=== PATIENT | male | born 1950 | race Caucasian/White ===

== ENCOUNTER 2021-06-03 05:35 | Day surgery (SDC) | payer OTHER ==
[2021-05-27 16:09] LABS: BASOPHILS # (AUTO) 0.1 X10'3 (0-0.2); BASOPHILS % (AUTO) 0.8 % (0-1); EOSINOPHILS # (AUTO) 0.1 X10'3 (0-0.9); EOSINOPHILS % (AUTO) 2.2 % (0-6); LYMPHOCYTES # (AUTO) 1.5 X10'3 (1.1-4.8); LYMPHOCYTES % (AUTO) 24.4 % (21-51); MEAN CORPUSCULAR HEMOGLOBIN 29.5 PG (27.0-31.0); MEAN CORPUSCULAR HGB CONC 32.5 g/dL (33.0-36.5); MEAN CORPUSCULAR VOLUME 90.7 FL (78-98); MEAN PLATELET VOLUME 8.7 FL (7.4-10.4); MONOCYTES # (AUTO) 0.6 X10'3 (0-0.9); MONOCYTES % (AUTO) 9.2 % (2-12); NEUTROPHILS # (AUTO) 3.9 X10'3 (1.8-7.7); NEUTROPHILS % (AUTO) 63.4 % (42-75); PRE OP HEMATOCRIT 44.2 % (42.0-52.0); PRE OP HEMOGLOBIN 14.3 g/dL (14.0-17.9); PRE OP PLATELET COUNT 178 X10'3 (140-440); RED BLOOD COUNT 4.87 X10'6 (4.70-6.10)
[2021-05-27 16:10] LABS: CLARITY,URINE CLEAR (Clear); COLOR,URINE YELLOW (Yellow); GLUCOSE, URINE NEGATIVE (Neg); KETONES,URINE NEGATIVE (Neg); LEUKOCYTE ESTERASE ,URINE NEGATIVE (Neg); NITRITES, URINE NEGATIVE (Neg); OCCULT BLOOD,URINE NEGATIVE (Neg); PH,URINE 6.5 (4.8-8.0); PROTEIN,URINE NEGATIVE (Neg); UROBILINOGEN,URINE 0.2 E.U/dL (0.2-1.0)
[2021-05-27 16:15] LABS: UA COLLECTION TYPE NON-SPECIFIED
[2021-05-27 16:26] LABS: PRE OP INR 1.1 INR; PRE OP PROTIME 11.4 SECONDS (9.0-12.0)
[2021-05-27 16:36] LABS: ALBUMIN 3.9 G/DL (3.4-5.0); ALBUMIN/GLOBULIN RATIO 1.2 (1.1-1.5); ALKALINE PHOSPHATASE 85 IU/L (46-116); BLOOD UREA NITROGEN 21 MG/DL (7-18); BUN/CREATININE RATIO 20.4 (5.4-32.0); CALCIUM 8.9 MG/DL (8.5-10.1); CHLORIDE 105 MMOL/L (99-107); CREATININE 1.03 MG/DL (0.60-1.10); PRE OP ALT 32 U/L (30-65); PRE OP ANION GAP 7 (8-16); PRE OP AST 32 U/L (10-37); PRE OP BILIRUB, TOTAL 0.5 MG/DL (0.0-1.0); PRE OP GLUCOSE 124 MG/DL (70-104); PRE OP POTASSIUM 5.2 MMOL/L (3.4-5.1); PRE OP SODIUM 141 MMOL/L (135-145); TOTAL CARBON DIOXIDE 29.2 MMOL/L (24-32); TOTAL PROTEIN 7.1 G/DL (6.4-8.2); eGFR 72 ML/MIN
[~2021-06-03] VITALS: Ht 182.9 cm; Wt 82.7 kg
[2021-06-03] VITALS (12 sets, daily range): BP systolic 96–130; BP diastolic 54–92
[~2021-06-03 05:35] MED LIST: ATOR40TA71 PO; BENZ-49 PO; CETI10TA15 PO; CHOL10008 PO; CYCL-394 PO; DABI150C PO; DICL20GE; DOCUMENT DATE & TIME OF BETA-BLOCKER PO ONE; EPLE25TA4 PO; FINA5TAB11 PO; FLUT16SP20 BOTHNARES; FOLI0.4T14 PO; HYDR10SY15 PO; LIDO5JEL9 TOP; METO-411 PO; MULT-1085 PO; OMEP20CA16 PO; PRAZ5CAP2 PO; SERT-434 PO; THIA50TA10 PO; TRAM50TA2 PO; cefazolin/dext.iso 2gm/50ml IV ONE; famotidine 20mg tablet PO ONE; ringers solution, lacted 1,000 ML IV SCH
[2021-06-03] MEDS ORDERED: sevoflurane 250ml liquid IH ONE (06:00)
[2021-06-03] MEDS ORDERED: bacitracin 15gm ointment TP ONE (06:41)
[2021-06-03] MEDS ORDERED: BUPIVAcaine 0.5% inj/PF 30 ML ONE (06:41)
[2021-06-03 06:43] LABS: ISTAT CREATININE 1.1 mg/dL (0.8-1.3); ISTAT HGB 13.6 g/dl (14.0-18.0); ISTAT IONIZED CALCIUM 1.3 mmol/L (1.03-1.32); ISTAT K 4.6 mmol/L (3.5-5.1); POC BUN/CREATININE RATIO 17.3 (5.4-32.0)
--- NOTE | 2021-06-03 06:50 | NUR ---
PT PREPPED FOR SURGERY, BILATERAL LEGS WARM AND DRY, SLIGHT DARK DISCOLORATION ON BOTH LOWER EXTREMITIES. SENSATION INTACT IN BOTH LEGS. PT APPEARS ANXIOUS PT HAS A HISTORY OF ATRIAL FIB AND HAS BEEN OFF OF HIS PRADEXA SINCE MONDAY. 06/01
[2021-06-03] MEDS ORDERED: BUPIVAcaine 0.5% inj/PF 30 ml vial IJ ONE (07:01)
[2021-06-03] MEDS ORDERED: midazolam 1 mg/ML 2ml injection ONE (07:09)
[2021-06-03] MEDS ORDERED: fentaNYL /PF 50mcg/ml 5ml ampule ONE (07:09)
[2021-06-03] MEDS ORDERED: ROPIVAcaine 0.5% (5mg/ml) 30ml vial ONE ×2 (07:09)
[2021-06-03] MEDS ORDERED: LIDOcaine 2% (20mg/ml) 5ml vial ONE (07:10)
[2021-06-03] MEDS ORDERED: dexamethasone sod phosphate 4mg/ml inj. ONE (07:12)
[2021-06-03] MEDS ORDERED: ondansetron/PF 4mg/2ml inj ONE (07:12)
[2021-06-03] MEDS ORDERED: labetalol 20mg/4ml (5mg/ml) syringe IV PRN (08:00)
[2021-06-03] MEDS ORDERED: morphine 2 MG/ML inj. syringe IV PRN (08:00)
[2021-06-03] MEDS ORDERED: ondansetron/PF 4mg/2ml inj IV PRN (08:00)
[2021-06-03] MEDS ORDERED: fentaNYL/PF 50MCG/1 ML 2ML syringe IV PRN ×2 (08:00)
[2021-06-03] MEDS ORDERED: ringers solution, lacted 1,000 ML IV SCH (08:00)
[2021-06-03] MEDS ORDERED: morphine 4 MG/ML inj SYRINge IV PRN (08:00)
[2021-06-03] MEDS ORDERED: hydrALAZINE 20mg/ml inj. IV PRN (08:00)
--- NOTE | 2021-06-03 08:28 | NUR ---
Received from OR via [facility] , accompanied by Anesthesiologist GIANCARLO and report given by Anesthesiolgist. PATIENT WITH 20G PIV IN RIGHT UE RUNNING LR AT 100. DENIES PAIN AT THIS TIME. LEFT LE IS IN A SPLINT THAT IS CDI. NO DRAINAGE. TOES EXPOSED AND ARE PWD AND HAVE + CAP REFILL. 10L MASK ON WITH 100% SATURATIONS. Addendum: 06/03/21 at 0837 by Cody Ram RN, RN Amended: Links added.
--- NOTE | 2021-06-03 09:48 | NUR ---
ALL DISCHARGE CRITERIA HAS BEEN MET. VSS, PAIN AT A TOLERABLE LEVEL, VOIDING AND ABLE TO SAFELY AMBULATE AND TRANSFER SELF. IV TAKEN OUT WITHOUT ANY COMPLICATIONS. ALL DISCHARGE INSTRUCTIONS COVERED WITH PATIENT AND ALL QUESTIONS ANSWERED. PATIENT TAKEN OUT VIA WHEELCHAIR TO PERSONAL VEHICLE WHERE FAMILY/FRIEND DROVE PATIENT HOME. EMPHASIZED CPAP USAGE AND ELEVATION OF FOOT. Addendum: 06/03/21 at 1025 by Cody Ram RN, RN Amended: Links added.
--- NOTE | 2021-06-03 09:48 | NUR ---
LEFT LE WITH BLOODY DRAINAGE UPON AMBULATING WITH CRUTCHES TO BATHROOM (NWB) REINFORCED WITH GAUZE AND NEW JARETH OVER OLD DRESSING. GAVE EXTRA BOX OF GAUZE TO PATIENT AND INSTRUCTED CAREGIVER DANDRE TOO. ALL DC INSTRUCTIONS GIVEN TO HER WELL. Addendum: 06/03/21 at 1029 by Cody Ram RN, RN Amended: Links added.
== END 2021-06-03 09:48 | disposition home or self-care (01) ==
LOC: PAS 05:35
PROVIDERS: ATTEND Podiatrist Foot & Ankle Surgery
DX: G57.52 Tarsal tunnel syndrome, left lower limb (principal); G47.30 Sleep apnea, unspecified; F41.9 Anxiety disorder, unspecified; F43.10 Post-traumatic stress disorder, unspecified; M19.90 Unspecified osteoarthritis, unspecified site; I48.91 Unspecified atrial fibrillation; I10 Essential (primary) hypertension; G89.18 Other acute postprocedural pain; Z20.822 Contact with and (suspected) exposure to COVID-19; Z79.899 Other long term (current) drug therapy; Z79.01 Long term (current) use of anticoagulants; Z87.891 Personal history of nicotine dependence; Z96.653 Presence of artificial knee joint, bilateral; Z98.84 Bariatric surgery status; Z98.890 Other specified postprocedural states; Z88.1 Allergy status to other antibiotic agents; Z88.2 Allergy status to sulfonamides; Z88.8 Allergy status to other drugs, medicaments and biological substances; Z88.5 Allergy status to narcotic agent
CPT/HCPCS: 28035; 36415; 64445; 64447; 76942; 80047; 80053; 81003; 85025; 85610; 85730; 93306; A6223; J1100; J2250; J2405; J2795; J3010; J3490; J7030; J7120; S0020; U0003; U0005; Z7506; Z7508; Z7512; A4215; A4618; A6449; A7000

== ENCOUNTER 2024-08-05 08:59 | Inpatient (IN) | payer OTHER, MEDICARE ==
[~2024-08-05] VITALS: Ht 182.9 cm; Wt 101.5 kg
[~2024-08-05 08:59] MED LIST changes: +BENZ-111 PO; -BENZ-49 PO; -CHOL10008 PO; +CHOL25CA2 PO; -DOCUMENT DATE & TIME OF BETA-BLOCKER PO ONE; +EPLE25TA24 PO; -EPLE25TA4 PO; -FLUT16SP20 BOTHNARES; +FLUT16SP35 BOTHNARES; -cefazolin/dext.iso 2gm/50ml IV ONE; -famotidine 20mg tablet PO ONE; -ringers solution, lacted 1,000 ML IV SCH
--- NOTE | 2024-08-05 09:25 | Physician Documentation ---
History of Present Illness ~ Chief Complaint: Diarrhea Stated Complaint: DEHYDRATED/DIARRHEA Time Seen by MD: 09:39 HPI 73-year-old male history of gastric bypass, atrial fibrillation on pradaxa presenting for diarrhea. He reports 2 days of persistent explosive diarrhea. Y esterday he stopped drinking fluids to help diminish his diarrhea. He denies any fevers or abdominal pain. He did take his metoprolol today Medication Reconciliation Allergies: Coded Allergies: Sulfa (Sulfonamide Antibiotics) (Verified Adverse Reaction, Unknown, RASH, 08/05/24) baclofen (Verified Adverse Reaction, Unknown, RASH, 08/05/24) doxycycline (Verified Adverse Reaction, Unknown, RASH, 08/05/24) hydrocodone (Verified Adverse Reaction, Unknown, RASH, 08/05/24) Scheduled Atorvastatin Calcium (Atorvastatin Calcium), 1 TAB PO DAILY, (Reported) Benzonatate (Benzonatate), 1 CAP PO Q8H, (Reported) Cetirizine HCl (Cetirizine HCl), 1 TAB PO DAILY, (Reported) Cholecalciferol (Vitamin D3) (Vitamin D3), 1 CAP PO DAILY, (Reported) Cyclobenzaprine HCl (Cyclobenzaprine HCl), 1 TAB PO Q8H, (Reported) Dabigatran Etexilate Mesylate (Pradaxa), 1 CAP PO BID, (Reported) Eplerenone (Eplerenone), 1 TAB PO DAILY, (Reported) Finasteride (Finasteride), 1 TAB PO DAILY, (Reported) Fluticasone Propionate (Fluticasone Propionate), 2 SPRAYS BOTHNARES DAILY, (Re ported) Folic Acid (FOLIC ACID tablet), 1 TAB PO DAILY, (Reported) Hydroxyzine HCl (Hydroxyzine HCl), 5 ML PO Q8H, (Reported) Lidocaine HCl (Lidocaine HCl), 1 TUBE TOP DAILY, (Reported) Metoprolol Succinate (Metoprolol Succinate), 1 TAB PO DAILY, (Reported) Multivitamin (Multi Vitamin Daily), 1 TAB PO DAILY, (Reported) Omeprazole (Omeprazole), 1 CAP PO BID, (Reported) Prazosin HCl (Prazosin HCl), 1 CAP PO HS, (Reported) Sertraline HCl (Sertraline HCl), 2 TAB PO DAILY, (Reported) Thiamine HCl (Vitamin B-1), 2 TAB PO DAILY, (Reported) Tramadol HCl (Tramadol HCl), 1 TABLET PO TID, (Reported) Miscellaneous Medications Diclofenac Sodium (Voltaren Arthritis Pain), Unknown Dose, (Reported) Review of Systems Constitutional: Denies: fever Respiratory: Denies: cough Cardiovascular: Denies: chest pain Gastrointestinal: Reports: diarrhea; Denies: abdomen distended, abdominal pain, nausea, vomiting, constipated, melena, hematemesis, hematochezia, rectal bleeding, rectal pain, dysphagia Genitourinary: Denies: burning, discharge, dysuria Neurological: Denies: headache, dizziness, fainting Progress Progress Note Consulted hospitalist who agrees with management plan and graciously accept for admission Results/Orders Reviewed/noted all lab results: Yes Results/Orders Orders - QI VÁSQUEZ MD Page Hospitalist (08/05/24 11:12) Fill Out Med Reconciliation (08/05/24 11:12) Completed Orders - QI VÁSQUEZ MD Stat Ekg (08/05/24 ) Ringers Solution, Lacted (Lactated Ringe (08/05/24 11:00) Ringers Solution, Lacted (Lactated Ringe (08/05/24 11:50) Medications Received in ER Medications (Trade) Dose Ordered Sig/Deepak Route PRN Reason Start Time Stop Time Status Last Admin Dose Admin Lactated Ringer's 1,000 ml @ 1,000 mls/hr ONCE ONCE IV 08/05/24 11:00 08/05/24 11:59 DC 08/05/24 11:17 1,000 MLS/HR Lactated Ringer's 1,000 ml @ 1,000 mls/hr ONCE ONCE IV 08/05/24 11:50 08/05/24 12:49 DC 08/05/24 12:15 1,000 MLS/HR Sodium Chloride 1,000 ml @ 100 mls/hr Q10H IV 08/05/24 11:50 08/05/24 12:45 100 MLS/HR Vital Signs 08/05/24 08/05/24 09:23 10:40 Temp 97.9 Pulse 87 117 Resp 18 B/P (MAP) 126/95 112/82 (92) Pulse Ox 96 96 Laboratory Tests Test 08/05/24 09:47 White Blood Count 4.9 Red Blood Count 4.98 Hemoglobin 14.7 Hematocrit 44.4 Mean Corpuscular Volume 89.2 Mean Corpuscular Hemoglobin 29.5 Mean Corpuscular Hemoglobin Concent 33.0 Red Cell Distribution Width 15.0 H Platelet Count 166 Mean Platelet Volume 8.4 Neutrophils (%) (Auto) 78.0 H Lymphocytes (%) (Auto) 8.9 L Monocytes (%) (Auto) 12.6 H Eosinophils (%) (Auto) 0.3 Basophils (%) (Auto) 0.2 Neutrophils # (Auto) 3.9 Lymphocytes # (Auto) 0.4 L Monocytes # (Auto) 0.6 Eosinophils # (Auto) 0.0 Basophils # (Auto) 0.0 CBC Comment Sodium Level 140 Potassium Level 4.4 Chloride Level 105 Carbon Dioxide Level 26.3 Anion Gap 9 Blood Urea Nitrogen 24 H Creatinine 2.05 H Estimated GFR/1.73 m2 32 BUN/Creatinine Ratio 11.7 Glucose Level 127 H Calcium Level 8.4 L Magnesium Level 1.8 Total Bilirubin 0.7 Aspartate Amino Transf (AST/SGOT) 15 Alanine Aminotransferase (ALT/SGPT) 10 L Alkaline Phosphatase 98 Total Protein 6.7 Albumin 3.0 L Globulin 3.7 Albumin/Globulin Ratio 0.8 L Amylase Level 25 Lipase 15 L Chemistry Comments EKG/XRAY/CT/US/VASC/MRI EKG : Additional Comment EKG independently interpreted by myself time 10:53 a.m. indication rapid heart rate atrial fibrillation rate 133 normal axis normal intervals no ST or T-wave abnormalities Medical Decision Making Additional info obtained from: old records Findings surgical note 06/03/21 Additional Comments Gastroenteritis, electrolyte abnormality, AFib Departure Disposition: ADMITTED INPATIENT Admitted to Inpatient Unit: to hospitalist Impression: Primary Impression: Atrial fibrillation with RVR Additional Impression: JOHN PAUL (acute kidney injury) Referrals: NO PRIMARY CARE PROVIDER (PCP) Critical Care Note Total Time (mins): 30 Critical Care Note The very real possibility of a deterioration of this patient's condition required the highest level of my preparedness for sudden, emergent intervention. I provided critical care services, which included medication orders, frequent r eevaluations of the patient's condition and response to treatment, ordering and reviewing test results, and discussing the case with various consultants. Excludes time spent performing separately billable procedures. The critical care time associated with the care of the patient was 30 minutes in the acute management of AFib RVR requiring intervention Signature Scribe Signature: na Attestation: QUINTIN Humphrey NP Aug 05, 2024 09:25 QI VÁSQUEZ MD Aug 05, 2024 10:45
[2024-08-05 10:03] LABS: BASOPHILS % (AUTO) 0.2 % (0-1); EOSINOPHILS % (AUTO) 0.3 % (0-6); HEMATOCRIT 44.4 % (42.0-52.0); HEMOGLOBIN 14.7 g/dl (14.0-17.9); LYMPHOCYTES # (AUTO) 0.4 X10'3 (1.1-4.8); LYMPHOCYTES % (AUTO) 8.9 % (21-51); MEAN CORPUSCULAR HEMOGLOBIN 29.5 PG (27.0-31.0); MEAN CORPUSCULAR VOLUME 89.2 FL (78-98); MEAN PLATELET VOLUME 8.4 FL (7.4-10.4); MONOCYTES # (AUTO) 0.6 X10'3 (0-0.9); MONOCYTES % (AUTO) 12.6 % (2-12); NEUTROPHILS # (AUTO) 3.9 X10'3 (1.8-7.7); PLATELET COUNT 166 X10'3 (140-440); RED BLOOD COUNT 4.98 X10'6 (4.70-6.10); WHITE BLOOD COUNT 4.9 X10'3 (4.5-11.0)
[2024-08-05 10:18] LABS: ALANINE AMINOTRANSFERASE 10 U/L (12-78); ALBUMIN/GLOBULIN RATIO 0.8 (1.1-1.5); ALKALINE PHOSPHATASE 98 IU/L (46-116); AMYLASE 25 U/L (25-115); ANION GAP 9 (8-16); ASPARTATE AMINO TRANSFERASE 15 U/L (10-37); BILIRUBIN,TOTAL 0.7 MG/DL (0.1-1.0); BLOOD UREA NITROGEN 24 MG/DL (7-18); BUN/CREATININE RATIO 11.7 (10.0-20.0); CALCIUM 8.4 MG/DL (8.5-10.1); CHLORIDE 105 MMOL/L (99-107); CREATININE 2.05 MG/DL (0.60-1.10); GLUCOSE 127 MG/DL (70-104); LIPASE 15 U/L (16-77); POTASSIUM 4.4 MMOL/L (3.5-5.1); SODIUM 140 MMOL/L (135-145); TOTAL CARBON DIOXIDE 26.3 MMOL/L (24-32); TOTAL PROTEIN 6.7 G/DL (6.4-8.2); eCRCL 36 ML/MIN; eGFR 32 ML/MIN
[2024-08-05] MEDS: ringers solution, lacted 1,000 ML IV ONE ×2 (11:17→12:15)
--- NOTE | 2024-08-05 11:27 | ELECTROCARDIOGRAPH REPORT ---
[facility] Date: 2024-08-05 Test Time: 10:53:29 Pat Name: NUPUR HERNANDEZ Department: EMERGENCY ROOM Room: Gender: M Sales Training Manager: mervin : 1950 Requested By: QI VÁSQUEZ Order Number: [id number] Reading MD: Measurements Intervals [place] Rate: 133 P: 0 NC: 0 QRS: 3 QRSD: 81 T: 53 QT: 315 QTc: 469 Interpretive Statements Atrial fibrillation Low voltage, extremity leads Please click the below link to view image of tracing.
[2024-08-05 11:46] LABS: MAGNESIUM 1.8 MG/DL (1.5-2.4)
[2024-08-05] MEDS ORDERED: magnesium sulf-water 4G/100mL 100 ML IV PRN (11:50)
[2024-08-05] MEDS ORDERED: magnesium Cl slow-release 64mg tablet PO PRN (11:50)
[2024-08-05] MEDS ORDERED: magnesium sulf-water 2g/50mL 50 ML IV PRN (11:50)
[2024-08-05] MEDS ORDERED: mag hydrox/Alum hydrox/simeth 30ml oral suspension PO PRN (11:50)
[2024-08-05] MEDS ORDERED: magnesium hydroxide 30ml (MOM) UD suspension PO PRN (11:50)
[2024-08-05] MEDS ORDERED: ondansetron/PF 4mg/2ml inj IV PRN (11:50)
[2024-08-05] MEDS ORDERED: acetaminophen 325mg tablet PO PRN (11:50)
[2024-08-05] MEDS ORDERED: potassium Cl 20 mEq SR tablet PO PRN ×2 (11:50)
[2024-08-05] MEDS ORDERED: potassium Cl 40MEQ/1/2NS 520ml 520 ML IV PRN (11:50)
[2024-08-05] MEDS: normal saline 1000ml 1,000 ML IV SCH (12:45)
--- NOTE | 2024-08-05 12:52 | HISTORY AND PHYSICAL-Residence ---
History & Physical Providers to CC Resident Creating Document: JUICE OLSONLanden LOMELIIS, RES ~ History of Present Illness Primary Medical Doctor: [facility]. Dr. Philippe Reason for Admit\Complaint: Diarrhea History of Present Illness Primary care - Dr. Philippe at [facility] - Dr. 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 The patient states that his diarrhea started approximately 36 hours ago. Among the associated factors he reports episodes starting after eating croatian food (beef and beans), he endorses several episodes losing count. Last bowel movement was at 8 A.M. this morning. He describes the stools as dark brown, foul-smelling, denies the presence of blood or mucus. The episodes persisted after taking kaopectate. He has not taken any antibiotics or PPIs recently. He states that this is not the 1st time that he has experienced a diarrhea, after his gastric bypass which was around 12-13 years ago he had experienced some episodes that solved by himself, this time he endorses that his diarrhea has been worse. Patient does not report any associated abdominal pain, fever, chills, lightheadedness, palpitations or urinary symptoms. Allergies: Coded Allergies: Sulfa (Sulfonamide Antibiotics) (Verified Allergy, Unknown, RASH, 08/06/24) baclofen (Verified Allergy, Unknown, RASH, 08/06/24) doxycycline (Verified Allergy, Unknown, RASH, 08/06/24) hydrocodone (Verified Allergy, Unknown, RASH, 08/06/24) Home Medications Home Medications Active Reported Multi Vitamin Daily (Multivitamin) 1 Each Tablet 1 Tab PO DAILY Tramadol HCl 50 Mg Tablet 1 Tablet PO TID Eplerenone 25 Mg Tablet 1 Tab PO DAILY Pradaxa (Dabigatran Etexilate Mesylate) 150 Mg Capsule 1 Cap PO BID Vitamin B-1 (Thiamine HCl) 50 Mg Tablet 2 Tab PO DAILY Sertraline HCl 100 Mg Tablet 2 Tab PO DAILY Prazosin HCl 5 Mg Capsule 1 Cap PO HS Omeprazole 20 Mg Capsule.dr 1 Cap PO BID Metoprolol Succinate 100 Mg Tab.sr.24h 1 Tab PO DAILY Lidocaine HCl 5 Ml Jel.pf.saton 1 Tube TOP DAILY Hydroxyzine HCl 10 Mg/5 Ml Syrup 5 Ml PO Q8H FOLIC ACID tablet (Folic Acid) 0.4 Mg Tablet 1 Tab PO DAILY Fluticasone Propionate 16 Gm [place].susp 2 Sprays BOTHNARES DAILY Finasteride 5 Mg Tablet 1 Tab PO DAILY Voltaren Arthritis Pain (Diclofenac Sodium) Unknown Strength Gel..gram. Unknown Dose Cyclobenzaprine HCl 10 Mg Tablet 1 Tab PO Q8H Vitamin D3 (Cholecalciferol (Vitamin D3)) 25 Mcg Capsule 1 Cap PO DAILY Cetirizine HCl 10 Mg Tablet 1 Tab PO DAILY Benzonatate 100 Mg Capsule 1 Cap PO Q8H Atorvastatin Calcium 40 Mg Tablet 1 Tab PO DAILY Past Medical History Past Medical History Significant for Hypertension COPD as per patient he has been evaluated by supervisory training specialist. State that he has a inhalers at home. PTSD Thyroid disorder, as per patient not taking any medication. Afib (dabigatran and metoprolol). Past Surgical History Surgical History Comment Gastric bypass - 12 years ago Skin removal surgery after losing around 300 lb B/L cataract surgeries Rotator cuff surgeries Open reduction for shoulder fracture during fall Right inguinal hernia surgery. Rhinoplasty Bilateral carpal tunnel surgery Right hernia repair B/L total knee replacement surgeries Left ankle orthopedic surgery. Family History Family History: Atrial fibrillation (Mother) Diabetes mellitus in mother Esophageal cancer (Father - chewing tobacco) Past Social History Smoking: Quit greater than 1 year (around 3/4th pack a day for 5 years - quit 15 years ago) Alcohol Use: None Drug Use: None Lives with: Alone Lives In: Home (As per patient he rents a duplex.) Occupation: retired () ROS All Other Systems: Reviewed and Negative ROS The patient states that he has been experiencing cough, with yellowish sputum for approximately 2-3 months. Stating secondary to pollen in the environment. Constitutional: Denies: fever Cardiovascular: Denies: chest pain Gastrointestinal: Reports: diarrhea; Denies: abdomen distended, abdominal pain, nausea, vomiting, constipated, melena, hematemesis, hematochezia, rectal bleeding, rectal pain, dysphagia Genitourinary: Denies: burning, discharge, dysuria Neurological: Denies: headache, dizziness, fainting Exam Vitals: Vital Signs Date Time Temp Pulse Resp B/P (MAP) Pulse Ox O2 Delivery O2 Flow Rate FiO2 08/05/24 10:40 117 112/82 (92) 96 08/05/24 09:23 97.9 18 General: Well alert, somnolent, well oriented, not agitated, well cooperated during the physical. HEENT: Conjunctive are pink, sclerae clear, no icterus, pupil is equal in both sides, reactive to light, no ear discharge, no pharyngeal erythema or an edema. Neck: Supple, no JVD, no lymphadenopathy and thyromegaly. Chest: Equal air entry on both lungs, crackles are noted on Left lower and middle lobes. Cardiovascular: S1-S2 irregular rhythm and rate, no gallops, no rubs, no murmurs Abdomen: soft, no visible peristalsis, increased bowel sounds present on auscultation, no tenderness, no guarding, no rigidity. Multiple surgical scars from excess skin removal surgery were present over abdomen and medial thighs. Extremities: No obvious deformities, no pitting edema bilaterally, capillary refill intact, peripheral pulsations are intact on both sides, presence of dermatitis stasis changes in bilateral lower extremities, B/L linear total knee replacement scars are seen, linear orthopedic scar seen behind the medial malleolus. Central Nervous System: No focal neurological deficits, no motor or sensory weakness in all 4 extremities, could move all 4 extremities, 2+ deep tendon reflexes, negative Babinski. Musculoskeletal: No joint swelling, deformities, inflammations, no costovertebral angle tenderness, and no scoliosis, Skin: Warm and dry. Presence of dermatitis stasis changes in bilateral lower extremities. Diagnostic Data Last Recorded Lab Results: 08/05/24 0947 08/05/24 0947 Advance Care Planning Advanced Care plannin - 30 Minutes (I spent a total of 17 minutes on reviewing various resuscitative measures/ACP with the patient at the time of admission. The patient has decided on a full code status.) Additional Plan Assessment and plan: 73-year-old male patient came to the hospital with chief complaint of diarrhea. 1. Acute Diarrhea: Possible gastroenteritis: Complaints of explosive diarrhea since 36 hours. He reports episodes starting after eating croatian food. He describes the stools as dark brown, foul-smelling. Follow-up ova and parasite. Follow-up occult blood in his stool. Follow-up leukocytes in his stool. Last episode of diarrhea at 8:00 a.m. on 08/05/2024. 2. Pre-renal JOHN PAUL likely secondary to renal tubular stasis: Creatinine 2.05, GFR 32, BUN/creatinine ratio: 11.7. Follow-up urine lytes. NS at 100 mL/hour. 3. Atrial fibrillation with RVR: Chads Vasc score: 2 The patient came to the hospital with heart rate of 130. The patient received one dose of metoprolol 5 mg IV, heart rate came down to 100. Follow-up echocardiogram. We will resume his home medication dabigatran after med reconciliation. Continue metoprolol succinate 100 mg daily. 4. Hypertension: Current blood pressure 133/66. We will continue his home medication after med reconciliation. 5. Posttraumatic stress disorder: We will continue sertraline, hydroxyzine. 6. Dyslipidemia: Follow-up lipid panel. We will continue atorvastatin 40 mg daily after med reconciliation. 7. COPD not in acute exacerbation: Duo nebs q.6h PRN. Code status: Full code DVT prophylaxis: SCDs, the patient is on dabigatran. Analgesia/sedation: Morphine PRN. Line/tube: PIV GI prophylaxis: Protonix Nutrition: Regular diet PT: Ordered Prognosis: Guarded Disposition: The patient will be admitted to PCU with telemetry. Ila Dong Internal Medicine Resident [facility] Date of Service: Aug 05, 2024 Billing Provider: PEYTON PACE MD Common Visit Codes: [id number] INP/OBS CARE (HIGH) Secondary Visit Codes: [id number] CARE PLAN 30 MINUTES ILA OLSON, RES Aug 05, 2024 12:52 PEYTON PACE MD Aug 07, 2024 08:11
[2024-08-05 13:26] VITALS: BP 133/76; PULSE 117; RESP 20; TEMP 97.3; O2SAT 94
[2024-08-05] MEDS: metoprolol tartrate 1mg/ml inj IV ONE (13:52)
[2024-08-05 14:04] LABS: BILIRUBIN,URINE NEGATIVE (Neg); CLARITY,URINE CLEAR (Clear); COLOR,URINE YELLOW (Yellow); GLUCOSE, URINE NEGATIVE (Neg); KETONES,URINE NEGATIVE (Neg); LEUKOCYTE ESTERASE ,URINE NEGATIVE (Neg); NITRITES, URINE NEGATIVE (Neg); OCCULT BLOOD,URINE SMALL (Neg); PROTEIN,URINE TRACE mg/dl (Neg); UROBILINOGEN,URINE 0.2 E.U/dL (0.2-1.0)
[2024-08-05 14:07] LABS: UA COLLECTION TYPE VOIDED
[2024-08-05 14:11] LABS: BACTERIA,URINE NONE SEEN /HPF (Neg); MUCUS STRANDS NONE SEEN /LPF (Neg); RBC,URINE NONE SEEN /HPF (0-2); SQUAMOUS EPITHELIAL CELL,UR FEW /LPF (FEW); WBC,URINE 0-4 /HPF (0-4)
[2024-08-05 15:00] VITALS: BP 140/75; PULSE 97; RESP 16; TEMP 97.4; O2SAT 97
--- NOTE | 2024-08-05 16:04 | RADIOLOGY REPORT ---
CHEST RADIOGRAPH Indication: sob Technique: Single frontal view of the chest was obtained COMPARISON: None FINDINGS: Lines and Tubes: none Lungs: Clear Pleura: No effusion. No pneumothorax. Cardiomediastinal contours: Unremarkable Bones: Unremarkable IMPRESSION: 1. No acute disease. Mild elevation left hemidiaphragm.
[2024-08-05] MEDS ORDERED: FLUO20CA39 PO (16:31)
[2024-08-05] MEDS ORDERED: MIRT-92 PO (16:33)
[2024-08-05] MEDS: metoprolol succinate 25mg (24-HOUR) SR. Tablet PO SCH (16:36)
[2024-08-05 16:55] LABS: C-REACTIVE PROTEIN 9.17 MG/DL (0.0-0.5); CHOL/HDL RATIO 3.2 (0.00-4.99); CHOLESTEROL 120 MG/DL (0-200); HDL CHOLESTEROL 38 MG/DL (35-60); LDL CHOLESTEROL 68 MG/DL (50-100); THYROID STIMULATING HORMONE 2.66 ulU/ml (0.34-4.50); TRIGLYCERIDES 88 MG/DL (20-135)
[2024-08-05 17:01] LABS: OSMOLALITY 296 MOSM/K (280-300)
[2024-08-05 17:02] LABS: HEMOGLOBIN A1C 5.5 % (4.5-6.2)
[2024-08-05 18:00] VITALS: BP 135/71; PULSE 116; RESP 17; TEMP 97.5; O2SAT 96
[2024-08-05 18:49] VITALS: RESP 18; O2SAT 98
[2024-08-05 19:58] LABS: OCCULT BLOOD STOOL NEGATIVE (Neg)
[2024-08-05 20:00] VITALS: RESP 13; O2SAT 93
[2024-08-05] MEDS: K and/or MAG REPLACEMENT MC SCH (20:00)
[2024-08-05] MEDS ORDERED: mirtazapine 15mg tablet PO ONE (21:00)
[2024-08-05 22:00] VITALS: BP 124/75; PULSE 129; RESP 13; TEMP 97.9; O2SAT 93
[2024-08-05] MEDS: lactobacillus rhamnosus 10,000 MMU CELLS/CAPSULE PO SCH (22:17)
[2024-08-05] MEDS: traMADol 50MG tablet PO SCH (22:17)
[2024-08-05] MEDS ORDERED: atorvastatin 20mg tablet PO SCH (22:30)
[2024-08-05] MEDS: atorvastatin 20mg tablet PO ONE (22:55)
[2024-08-05] MEDS: dabigatran 150mg capsule PO ONE (22:58)
[2024-08-06] VITALS (9 sets, daily range): BP systolic 112–127; BP diastolic 58–82; PULSE 74–127; RESP 16–25; TEMP 97.6–98.9; O2SAT 91–100
[2024-08-06] MEDS: metroNIDAZOLE-Flagyl 500mg/NS 100 ML IV SCH
--- NOTE | 2024-08-06 00:18 | RADIOLOGY REPORT ---
RENAL ULTRASOUND CLINICAL HISTORY: JOHN PAUL TECHNIQUE: Multiple grayscale ultrasound images were obtained through the kidneys and urinary bladder . COMPARISON: None FINDINGS: Right kidney: Measures 10.1 x 5.2 x 6.3 cm. No hydronephrosis. Left kidney: Measures 8.4 x 4.9 x 5.2 cm. No hydronephrosis. The bladder was not optimally evaluated due to patient's inability to tolerate the examination. IMPRESSION: Small left kidney and normal-sized right kidney without hydronephrosis.
[2024-08-06] MEDS: mirtazapine 15mg tablet PO ONE (00:30)
[2024-08-06] MEDS: cyclobenzaprine 10mg tablet PO SCH (00:33)
[2024-08-06 06:53] LABS: BASOPHILS % (AUTO) 0.4 % (0-1); EOSINOPHILS % (AUTO) 0.5 % (0-6); HEMOGLOBIN 13.9 g/dl (14.0-17.9); LYMPHOCYTES # (AUTO) 0.7 X10'3 (1.1-4.8); LYMPHOCYTES % (AUTO) 14.6 % (21-51); MEAN CORPUSCULAR HEMOGLOBIN 29.4 PG (27.0-31.0); MEAN CORPUSCULAR HGB CONC 33.1 g/dL (33.0-36.5); MEAN CORPUSCULAR VOLUME 88.8 FL (78-98); MEAN PLATELET VOLUME 8.6 FL (7.4-10.4); MONOCYTES # (AUTO) 0.7 X10'3 (0-0.9); MONOCYTES % (AUTO) 15.1 % (2-12); NEUTROPHILS # (AUTO) 3.1 X10'3 (1.8-7.7); NEUTROPHILS % (AUTO) 69.4 % (42-75); PLATELET COUNT 151 X10'3 (140-440); RED BLOOD COUNT 4.73 X10'6 (4.70-6.10); RED CELL DISTRIBUTION WIDTH 14.9 % (11.5-14.5); WHITE BLOOD COUNT 4.5 X10'3 (4.5-11.0)
[2024-08-06 07:18] LABS: ALANINE AMINOTRANSFERASE 9 U/L (12-78); ALBUMIN 2.8 G/DL (3.4-5.0); ALBUMIN/GLOBULIN RATIO 0.9 (1.1-1.5); ALKALINE PHOSPHATASE 83 IU/L (46-116); ANION GAP 9 (8-16); ASPARTATE AMINO TRANSFERASE 20 U/L (10-37); BILIRUBIN,TOTAL 0.7 MG/DL (0.1-1.0); BLOOD UREA NITROGEN 22 MG/DL (7-18); BUN/CREATININE RATIO 14.7 (10.0-20.0); CALCIUM 8.3 MG/DL (8.5-10.1); CHLORIDE 104 MMOL/L (99-107); GLUCOSE 91 MG/DL (70-104); MAGNESIUM 1.5 MG/DL (1.5-2.4); POTASSIUM 4.2 MMOL/L (3.5-5.1); SODIUM 139 MMOL/L (135-145); eCRCL 50 ML/MIN; eGFR 46 ML/MIN
[2024-08-06 07:56] LABS: TOTAL CELLS COUNTED 100
[2024-08-06 07:57] LABS: PLATELET ESTIMATE NORMAL
[2024-08-06] MEDS: metoprolol succinate 25mg (24-HOUR) SR. Tablet PO SCH (08:00)
[2024-08-06] MEDS ORDERED: ciprofloxacin lact 400MG/200ML 200 ML IV SCH (08:00)
[2024-08-06] MEDS: pantoprazole 40mg Tablet.DR PO SCH (09:26)
[2024-08-06] MEDS: atorvastatin 20mg tablet PO SCH (09:33)
[2024-08-06] MEDS: ciprofloxacin/D5W 200mg/100mL 100 ML IV SCH (09:35)
[2024-08-06] MEDS: sertraline 50mg tablet PO SCH (09:54)
[2024-08-06] MEDS: diltiazem 5mg/ml 5ml inj. IV ONE (10:02)
[2024-08-06 13:40] LABS: PRO BRAIN NATRIURETIC PEPTIDE 1934 PG/ML (0-125)
[2024-08-06] MEDS: ipratropium/albuterol 3ml nebule NEB PRN (14:22)
--- NOTE | 2024-08-06 15:09 | PROGRESS NOTE- Residence ---
Progress Note - Resident Providers to CC Resident Creating Document: WILFRIDO OLSON, RES ~ Antibiotic Timeout Antibiotic Ordered?: Yes Subjective The patient has been evaluated at the bedside. Still reported episodes of diarrhea described as watery. Denies any pain, subjective fever or shortness of breaths. Objective Vital Signs Date Time Temp Pulse Resp B/P (MAP) Pulse Ox O2 Delivery O2 Flow Rate FiO2 08/06/24 14:39 108 18 Room Air 0.0 08/06/24 14:30 97 21 08/06/24 11:00 98.9 114/58 (76) Physical exam: General: Well alert, somnolent, well oriented, not agitated, well cooperated during the physical. HEENT: Conjunctive are pink, sclerae clear, no icterus, pupil is equal in both sides, reactive to light, no ear discharge, no pharyngeal erythema or an edema. Neck: Supple, no JVD, no lymphadenopathy and thyromegaly. Chest: Equal air entry on both lungs, mild crackles are noted on left lower and middle lobes. Cardiovascular: S1-S2 irregular rhythm and rate, no gallops, no rubs, no murmurs Abdomen: soft, no visible peristalsis, increased bowel sounds present on auscultation, no tenderness, no guarding, no rigidity. Multiple surgical scars from excess skin removal surgery were present over abdomen and medial thighs. Extremities: No obvious deformities, no pitting edema bilaterally, capillary refill intact, peripheral pulsations are intact on both sides, presence of dermatitis stasis changes in bilateral lower extremities, B/L linear total knee replacement scars are seen, linear orthopedic scar seen behind the medial malleolus. Central Nervous System: No focal neurological deficits, no motor or sensory weakness in all 4 extremities, could move all 4 extremities, 2+ deep tendon reflexes, negative Babinski. Musculoskeletal: No joint swelling, deformities, inflammations, no costovertebral angle tenderness, and no scoliosis, Skin: Warm and dry. Presence of dermatitis stasis changes in bilateral lower extremities. Result Diagram: 08/06/2461208/06/24612 Assessment Assessment 73-year-old male patient came to the hospital with chief complaint of diarrhea. Plan Plan Acute Diarrhea: Gastroenteritis: Complaints of explosive diarrhea since 36 hours. He reports episodes starting after eating kosovan food. He describes the stools as dark brown, foul-smelling. Follow-up ova and parasite. Follow-up occult blood in his stool. Follow-up leukocytes in his stool. Last episode of diarrhea at 8:00 a.m. on 08/05/2024. 08/06/2024: Reported six episodes of diarrhea during night described as watery. Follow-up C diff. stool culture preliminary, negative for Salmonella, Shigella, Campylobacter, vibrio, E coli [id number], Yersinia and Aeromonas. Occult blood in his stool negative. Due to profuse diarrhea the patient was started on metronidazole, ciprofloxacin and Culturelle [id number] [address]i.d. Pre-renal JOHN PAUL likely secondary to dehydration: Obstructive uropathy ruled out: Creatinine 2.05, GFR 32, BUN/creatinine ratio: 11.7. Follow-up urine lytes. NS at 100 mL/hour. 08/06/2024: Kidney ultrasound showing small left kidney and normal right kidney without hydronephrosis. BUN/creatinine ratio: 14.7, FeNa: 1.3% can be seen in either prerenal or intrinsic states. FeUrea: 64.2% indicated intrinsic renal disease. Creatinine trending down from 2.05 to 1.50, GFR trending up 46. We will continue NS at 80 mL/hour. Atrial fibrillation with RVR: Chads Vasc score: 2 The patient came to the hospital with heart rate of 130. The patient received one dose of metoprolol 5 mg IV, heart rate came down to 100. Follow-up echocardiogram. We will resume his home medication dabigatran after med reconciliation. Continue metoprolol succinate 100 mg daily. 08/06/2024: Heart rate trending down from 130 to 108. We will continue his home medication metoprolol succinate 100 mg daily. Continue dabigatran 150 mg b.i.d. Hypertension: Current blood pressure 133/66. On metoprolol succinate 10 mg daily. Posttraumatic stress disorder: On sertraline 200 mg daily, prazosin 5 mg HS, mirtazapine 22.5 mg HS. Dyslipidemia: Cholesterol 120, LDL 68, HDL 38. Atorvastatin 40 mg daily. COPD not in acute exacerbation: Duo nebs q.6h PRN. Code status: Full code DVT prophylaxis: SCDs, the patient is on dabigatran. Analgesia/sedation: Morphine PRN, tramadol Line/tube: PIV GI prophylaxis: Protonix 40 mg p.o. daily. Nutrition: Regular diet PT: Ordered Prognosis: Guarded Disposition: We will continue medical management. Pending C diff test. Wilfrido Dong Internal Medicine Resident [facility] Date of Service: Aug 06, 2024 Billing Provider: PEYTON PACE MD Common Visit Codes: [id number] INP/OBS CARE(HIGH) WILFRIDO OLSON, RES Aug 06, 2024 15:09 PEYTON PACE MD Aug 07, 2024 08:12
[2024-08-06 15:39] LABS: C DIFF ANTIGEN NEGATIVE (NEGATIVE); C DIFF SPECIMEN=DIARRHEA? ACCEPTABLE; C DIFFICILE TOXINS A&B NEGATIVE (Neg)
[2024-08-06] MEDS: hydrOXYzine 10 MG tablet PO SCH (15:43)
[2024-08-06] MEDS: finasteride 5mg tablet PO SCH (15:43)
[2024-08-06] MEDS: FLUoxetine 20mg capsule PO SCH (15:44)
[2024-08-06] MEDS: fluticasone nasal spray 16GM bottle NS SCH (15:44)
--- NOTE | 2024-08-06 18:29 | CARDIOLOGY REPORT ---
APPROVED REPORT EXAM: Comprehensive 2D, Doppler, and color-flow Echocardiogram. Patient Location: 3022 [address] Heart Rate: 116-125 bpm Rhythm: Probable Atrial Fibrillation Indications HYPERTENSION COPD AFIB WITH RVR Qc Scientist: Santo Kim MD Previous echo:05-31-21 [facility] EF 55-60%, RVE, trTR, trMR, LAE 2D Dimensions IVSd 1.2 (0.7-1.1cm) LVDd 4.5 cm PWd 1.0 (0.7-1.1cm) IVSs 1.4 (0.8-1.2cm) LVDs 2.0 (2.5-4.0cm) PWs 1.8 (0.8-1.2cm) LVOT Diameter 2.07 (1.8-2.4cm) FS (%) 54.1 % SV 76.8 ml CO 11.2 L/min M-Mode Dimensions Left Atrium(MM) 5.13 (2.5-4.0cm) IVSd 1.00 (0.7-1.1cm) Aortic Root 2.87 (2.2-3.7cm) Aortic Cusp Exc 1.75 (1.5-2.0cm) MV EPSS 0.8 (<0.5cm) Aortic Valve AoV Peak Brandyn. 166.4 cm/s AoV VTI 22.2 cm AO Peak GR. 11.1 mmHg AO Mean GR. 6 mmHg LVOT VTI 16.60 cm LVOT Peak Brandyn. 115.9 cm/s MOISES(VTI)/BSA 2.51 cm2/m2 MOISES (VTI) 2.51 cm2 Mitral Valve MV Peak Gr. 5 mmHg MV PHT 72 ms MVA (PHT) 3.06 cm2 MV [id number] cm/s LEFT VENTRICLE Normal LV size and wall thickness. Overall systolic function is normal. LVEF is 60%. RIGHT VENTRICLE RV appears at least mildly dilated in size with normal function. ATRIA Left atrium is severely dilated. AORTIC VALVE Trileaflet AV appears mildly sclerotic without stenosis. No insufficiency. MITRAL VALVE Mild MV annular calcification without stenosis. Trace regurgitation. TRICUSPID VALVE TV appears structurally normal with trace regurgitation. PULMONIC VALVE Normal PV without stenosis, physiologic insufficiency. GREAT VESSELS The aortic root is normal in size. IVC is not well visualized. PERICARDIUM Normal pericardium. No effusion. Other Information Study Quality: Fair due to poor subcostal & SSN windows Conclusion Normal LV size and wall thickness. Overall systolic function is normal. LVEF is 60%. RV appears at least mildly dilated in size with normal function. Left atrium is severely dilated. Trileaflet AV appears mildly sclerotic without stenosis. No insufficiency. Mild MV annular calcification without stenosis. Trace regurgitation. TV appears structurally normal with trace regurgitation. Normal pericardium. No effusion.
[2024-08-06] MEDS: mirtazapine 15mg tablet PO SCH (20:56)
[2024-08-06] MEDS: prazosin 5mg capsule PO SCH (20:57)
[2024-08-06] MEDS: dabigatran 150mg capsule PO SCH (20:58)
[2024-08-06] MEDS ORDERED: mirtazapine 15mg tablet PO ONE ×2 (21:00)
[2024-08-06] MEDS: metoprolol tartrate 1mg/ml inj IV ONE (23:51)
[2024-08-07] VITALS (7 sets, daily range): BP systolic 100–121; BP diastolic 60–80; PULSE 84–113; RESP 16–20; TEMP 97.6–98.5; O2SAT 95–98
[2024-08-07] MEDS: multivitamins, therapeutics tablet PO SCH (09:37)
[2024-08-07 10:17] LABS: BASOPHILS % (AUTO) 0.1 % (0-1); EOSINOPHILS # (AUTO) 0.1 X10'3 (0-0.9); EOSINOPHILS % (AUTO) 1.9 % (0-6); HEMATOCRIT 41.4 % (42.0-52.0); HEMOGLOBIN 13.6 g/dl (14.0-17.9); LYMPHOCYTES # (AUTO) 0.4 X10'3 (1.1-4.8); LYMPHOCYTES % (AUTO) 11.5 % (21-51); MEAN CORPUSCULAR HGB CONC 32.7 g/dL (33.0-36.5); MEAN CORPUSCULAR VOLUME 88.5 FL (78-98); MEAN PLATELET VOLUME 8.7 FL (7.4-10.4); MONOCYTES # (AUTO) 0.4 X10'3 (0-0.9); MONOCYTES % (AUTO) 10.4 % (2-12); NEUTROPHILS # (AUTO) 2.8 X10'3 (1.8-7.7); NEUTROPHILS % (AUTO) 76.1 % (42-75); PLATELET COUNT 142 X10'3 (140-440); RED BLOOD COUNT 4.68 X10'6 (4.70-6.10); RED CELL DISTRIBUTION WIDTH 14.8 % (11.5-14.5); WHITE BLOOD COUNT 3.6 X10'3 (4.5-11.0)
[2024-08-07 10:31] LABS: ALANINE AMINOTRANSFERASE 9 U/L (12-78); ALBUMIN 2.7 G/DL (3.4-5.0); ALBUMIN/GLOBULIN RATIO 0.8 (1.1-1.5); ALKALINE PHOSPHATASE 82 IU/L (46-116); ANION GAP 8 (8-16); ASPARTATE AMINO TRANSFERASE 23 U/L (10-37); BILIRUBIN,TOTAL 0.5 MG/DL (0.1-1.0); BLOOD UREA NITROGEN 20 MG/DL (7-18); BUN/CREATININE RATIO 15.2 (10.0-20.0); CALCIUM 8.2 MG/DL (8.5-10.1); CHLORIDE 106 MMOL/L (99-107); CREATININE 1.32 MG/DL (0.60-1.10); GLUCOSE 131 MG/DL (70-104); MAGNESIUM 1.6 MG/DL (1.5-2.4); POTASSIUM 3.7 MMOL/L (3.5-5.1); SODIUM 140 MMOL/L (135-145); TOTAL CARBON DIOXIDE 26.2 MMOL/L (24-32); TOTAL PROTEIN 5.9 G/DL (6.4-8.2); eCRCL 56 ML/MIN; eGFR 53 ML/MIN
[2024-08-07] MEDS: loperamide 2mg capsule PO ONE (11:17)
[2024-08-07] MEDS: morphine 2 MG/ML inj. syringe IV PRN ×2 (11:18→22:26)
--- NOTE | 2024-08-07 15:47 | PROGRESS NOTE- Residence ---
Progress Note - Resident Providers to CC Resident Creating Document: WILFRIDO OLSON, RES ~ Antibiotic Timeout Antibiotic Ordered?: Yes Subjective The patient has been evaluated at the bedside. Patient reports 2-3 bowel movements since yesterday. He reports diarrheal episodes without warning/urge to defecate. He also reports abdominal cramping. Objective Vital Signs Date Time Temp Pulse Resp B/P (MAP) Pulse Ox O2 Delivery O2 Flow Rate FiO2 08/07/24 15:37 98 18 96 Room Air* 0 21 08/07/24 02:00 98.5 101/60 (74) Physical exam: General: Well alert, somnolent, well oriented, not agitated, well cooperated during the physical. HEENT: Conjunctive are pink, sclerae clear, no icterus, pupil is equal in both sides, reactive to light, no ear discharge, no pharyngeal erythema or an edema. Neck: Supple, no JVD, no lymphadenopathy and thyromegaly. Chest: Equal air entry on both lungs, mild crackles are noted on left lower and middle lobes. Cardiovascular: S1-S2 irregular rhythm and rate, no gallops, no rubs, no murmurs Abdomen: soft, no visible peristalsis, increased bowel sounds present on auscultation, no tenderness, no guarding, no rigidity. Multiple surgical scars from excess skin removal surgery were present over abdomen and medial thighs. Extremities: No obvious deformities, no pitting edema bilaterally, capillary refill intact, peripheral pulsations are intact on both sides, presence of dermatitis stasis changes in bilateral lower extremities, B/L linear total knee replacement scars are seen, linear orthopedic scar seen behind the medial malleolus. Central Nervous System: No focal neurological deficits, no motor or sensory weakness in all 4 extremities, could move all 4 extremities, 2+ deep tendon reflexes, negative Babinski. Musculoskeletal: No joint swelling, deformities, inflammations, no costovertebral angle tenderness, and no scoliosis, Skin: Warm and dry. Presence of dermatitis stasis changes in bilateral lower extremities. Result Diagram: 08/07/2490008/07/24900 Assessment Assessment 73-year-old male patient came to the hospital with chief complaint of diarrhea. Plan Plan Acute Diarrhea: Gastroenteritis: C diff-ruled out: Bacterial gastroenteritis-ruled out: Complaints of explosive diarrhea since 36 hours. He reports episodes starting after eating [place] citizen food. He describes the stools as dark brown, foul-smelling. Reported six episodes of diarrhea during night described as watery. C diff: Negative. Stool culture final: negative for Salmonella, Shigella, Campylobacter, vibrio, E coli [id number], Yersinia and Aeromonas. Occult blood in his stool negative. Due to profuse diarrhea the patient was started on metronidazole, ciprofloxacin and Culturelle [address] mmu b.i.d. Reported 2-3 episodes of diarrhea today. Possible viral gastroenteritis. Continue supportive care with IV NS 100 ml/hr. Loperamide 2 mg p.o. q.6 hours PRN. Pre-renal JOHN PAUL likely secondary to dehydration-improving: Obstructive uropathy ruled out: Creatinine 2.05, GFR 32, BUN/creatinine ratio: 11.7. Kidney ultrasound showing small left kidney and normal right kidney without hydronephrosis. BUN/creatinine ratio: 14.7, FeNa: 1.3% can be seen in either prerenal or intrinsic states. FeUrea: 64.2% indicated intrinsic renal disease. Creatinine trending down from 2.05 to 1.50, GFR trending up 46. NS at 50 mL/hour. Atrial fibrillation with RVR: Chads Vasc score: 2 Current heart rate: 98 bpm. Continue metoprolol succinate 100 mg daily. Continue dabigatran 150 mg b.i.d. Hypertension: Current blood pressure within reference range. Metoprolol succinate 10 mg daily. Posttraumatic stress disorder: On sertraline 200 mg daily, prazosin 5 mg HS, mirtazapine 22.5 mg HS. Dyslipidemia: Cholesterol 120, LDL 68, HDL 38. Atorvastatin 40 mg daily. COPD not in acute exacerbation: Duo nebs q.6h PRN. Code status: Full code DVT prophylaxis: SCDs and the patient is on Pradaxa. Analgesia/sedation: Morphine Line/tube: PIV GI prophylaxis: Protonix Nutrition: Regular diet PT: Ordered Prognosis: Guarded Disposition: We will start loperamide. Anticipated discharge tomorrow. Wilfrido Dong Internal Medicine Resident [facility] Date of Service: Aug 07, 2024 Billing Provider: PEYTON PACE MD Common Visit Codes: [id number] INP/OBS CARE(HIGH) WILFRIDO OLSON, RES Aug 07, 2024 15:47 PEYTON PACE MD Aug 08, 2024 08:01
[2024-08-07] MEDS: loperamide 2mg capsule PO PRN (17:24)
[2024-08-08] VITALS (9 sets, daily range): BP systolic 120–139; BP diastolic 79–93; PULSE 80–107; RESP 13–20; TEMP 96.9–97.7; O2SAT 94–99
[2024-08-08] MEDS ORDERED: morphine 2 MG/ML inj. syringe IV PRN (08:05)
[2024-08-08 09:05] LABS: BASOPHILS % (AUTO) 0.1 % (0-1); EOSINOPHILS # (AUTO) 0.1 X10'3 (0-0.9); EOSINOPHILS % (AUTO) 2.2 % (0-6); HEMATOCRIT 39.5 % (42.0-52.0); HEMOGLOBIN 13.1 g/dl (14.0-17.9); LYMPHOCYTES # (AUTO) 0.6 X10'3 (1.1-4.8); LYMPHOCYTES % (AUTO) 13.4 % (21-51); MEAN CORPUSCULAR HEMOGLOBIN 29.4 PG (27.0-31.0); MEAN CORPUSCULAR HGB CONC 33.1 g/dL (33.0-36.5); MEAN CORPUSCULAR VOLUME 88.7 FL (78-98); MEAN PLATELET VOLUME 9.1 FL (7.4-10.4); MONOCYTES # (AUTO) 0.8 X10'3 (0-0.9); MONOCYTES % (AUTO) 18.1 % (2-12); NEUTROPHILS # (AUTO) 2.9 X10'3 (1.8-7.7); NEUTROPHILS % (AUTO) 66.2 % (42-75); PLATELET COUNT 140 X10'3 (140-440); RED BLOOD COUNT 4.45 X10'6 (4.70-6.10); RED CELL DISTRIBUTION WIDTH 14.9 % (11.5-14.5); WHITE BLOOD COUNT 4.4 X10'3 (4.5-11.0)
[2024-08-08 09:19] LABS: ALANINE AMINOTRANSFERASE 15 U/L (12-78); ALBUMIN 2.7 G/DL (3.4-5.0); ALKALINE PHOSPHATASE 93 IU/L (46-116); ANION GAP 9 (8-16); ASPARTATE AMINO TRANSFERASE 22 U/L (10-37); BILIRUBIN,TOTAL 0.4 MG/DL (0.1-1.0); BLOOD UREA NITROGEN 13 MG/DL (7-18); BUN/CREATININE RATIO 10.9 (10.0-20.0); CHLORIDE 110 MMOL/L (99-107); CREATININE 1.19 MG/DL (0.60-1.10); GLUCOSE 90 MG/DL (70-104); MAGNESIUM 1.7 MG/DL (1.5-2.4); POTASSIUM 4.1 MMOL/L (3.5-5.1); SODIUM 146 MMOL/L (135-145); TOTAL CARBON DIOXIDE 26.9 MMOL/L (24-32); TOTAL PROTEIN 5.4 G/DL (6.4-8.2); eCRCL 62 ML/MIN; eGFR 60 ML/MIN
[2024-08-08 10:02] LABS: PLATELET ESTIMATE NORMAL; TOTAL CELLS COUNTED 100
--- NOTE | 2024-08-08 17:38 | PROGRESS NOTE- Residence ---
Progress Note - Resident Providers to CC Resident Creating Document: WILFRIDO OLSON, RES ~ Antibiotic Timeout Antibiotic Ordered?: Yes Subjective The patient has been evaluated at the bedside. The patient reports mild improving. Still having diarrhea, and abdominal cramps, open to receive physical therapy evaluation. Objective Vital Signs Date Time Temp Pulse Resp B/P (MAP) Pulse Ox O2 Delivery O2 Flow Rate FiO2 08/08/24 17:03 88 20 98 Room Air* 0 21 08/08/24 15:00 97.2 139/93 (108) Physical exam: General: Well alert, somnolent, well oriented, not agitated, well cooperated during the physical. HEENT: Conjunctive are pink, sclerae clear, no icterus, pupil is equal in both sides, reactive to light, no ear discharge, no pharyngeal erythema or an edema. Neck: Supple, no JVD, no lymphadenopathy and thyromegaly. Chest: Equal air entry on both lungs, mild crackles are noted on left lower and middle lobes. Cardiovascular: S1-S2 irregular rhythm and rate, no gallops, no rubs, no murmurs Abdomen: soft, no visible peristalsis, increased bowel sounds present on auscultation, no tenderness, no guarding, no rigidity. Multiple surgical scars from excess skin removal surgery were present over abdomen and medial thighs. Extremities: No obvious deformities, no pitting edema bilaterally, capillary refill intact, peripheral pulsations are intact on both sides, presence of dermatitis stasis changes in bilateral lower extremities, B/L linear total knee replacement scars are seen, linear orthopedic scar seen behind the medial malleolus. Central Nervous System: No focal neurological deficits, no motor or sensory weakness in all 4 extremities, could move all 4 extremities, 2+ deep tendon reflexes, negative Babinski. Musculoskeletal: No joint swelling, deformities, inflammations, no costovertebral angle tenderness, and no scoliosis, Skin: Warm and dry. Presence of dermatitis stasis changes in bilateral lower extremities. Result Diagram: 08/08/24 0758 08/08/24 0758 Assessment Assessment 73-year-old male patient came to the hospital with chief complaint of diarrhea. Plan Plan Acute Diarrhea: Gastroenteritis: C diff-ruled out: Bacterial gastroenteritis-ruled out: Complaints of explosive diarrhea since 36 hours. He reports episodes starting after eating [place] food. He describes the stools as dark brown, foul-smelling. Reported six episodes of diarrhea during night described as watery. C diff: Negative. Stool culture final: negative for Salmonella, Shigella, Campylobacter, vibrio, E coli 0157-H7, Yersinia and Aeromonas. Occult blood in his stool negative. Due to profuse diarrhea the patient was started on metronidazole, ciprofloxacin and Culturelle [address] [address]mu [address]i.d. Loperamide 2 mg p.o. q.6 hours PRN. On metronidazole and ciprofloxacin day 3. Starting psyllium 5.8 g HS. Patient is agreeable for rehab service if it is needed. He states that if diarrhea improves until tomorrow he will rather to be discharged home. Pre-renal JOHN PAUL likely secondary to dehydration-improved: Obstructive uropathy ruled out: Creatinine 2.05, GFR 32, BUN/creatinine ratio: 11.7. Kidney ultrasound showing small left kidney and normal right kidney without hydronephrosis. BUN/creatinine ratio: 14.7, FeNa: 1.3% can be seen in either prerenal or intrinsic states. FeUrea: 64.2% indicated intrinsic renal disease. Creatinine trending down from 2.05 to 1.50, GFR trending up 46. NS at 50 mL/hour. Atrial fibrillation with RVR-controlled: Chads Vasc score: 2 Current heart rate: 98 bpm. Continue metoprolol succinate 100 mg daily. Continue dabigatran 150 mg b.i.d. Hypertension: Current blood pressure within reference range. Metoprolol succinate 10 mg daily. Posttraumatic stress disorder: On sertraline 200 mg daily, prazosin 5 mg HS, mirtazapine 22.5 mg HS. Dyslipidemia: Cholesterol 120, LDL 68, HDL 38. Atorvastatin 40 mg daily. COPD not in acute exacerbation: Duo nebs q.6h PRN. Code status: Full code DVT prophylaxis: SCDs and the patient is on Pradaxa. Analgesia/sedation: Morphine Line/tube: PIV GI prophylaxis: Protonix Nutrition: Regular diet PT: Ordered Prognosis: Guarded Disposition: Continue medical management. Anticipated discharge tomorrow. Wilfrido Dong Internal Medicine Resident [facility] Date of Service: Aug 08, 2024 Billing Provider: PEYTON PACE MD,WILFRIDO GARCIA, RES Aug 08, 2024 17:38
[2024-08-08] MEDS: psyllium seed 5.8 gm packet (sugar-free) PO SCH (21:16)
[2024-08-09 02:00] VITALS: BP 150/64; PULSE 77; RESP 18; TEMP 98; O2SAT 98
[2024-08-09 06:00] VITALS: BP 115/78; PULSE 90; RESP 13; TEMP 97.4; O2SAT 97
[2024-08-09 08:25] VITALS: RESP 13; O2SAT 97
[2024-08-09 08:59] LABS: BASOPHILS % (AUTO) 0.2 % (0-1); EOSINOPHILS # (AUTO) 0.1 X10'3 (0-0.9); EOSINOPHILS % (AUTO) 3.6 % (0-6); HEMATOCRIT 35.9 % (42.0-52.0); HEMOGLOBIN 11.9 g/dl (14.0-17.9); LYMPHOCYTES # (AUTO) 0.7 X10'3 (1.1-4.8); MEAN CORPUSCULAR HEMOGLOBIN 29.3 PG (27.0-31.0); MEAN CORPUSCULAR HGB CONC 33.2 g/dL (33.0-36.5); MEAN CORPUSCULAR VOLUME 88.3 FL (78-98); MEAN PLATELET VOLUME 8.8 FL (7.4-10.4); MONOCYTES # (AUTO) 0.7 X10'3 (0-0.9); MONOCYTES % (AUTO) 18.7 % (2-12); NEUTROPHILS # (AUTO) 2.2 X10'3 (1.8-7.7); NEUTROPHILS % (AUTO) 58.5 % (42-75); PLATELET COUNT 131 X10'3 (140-440); RED BLOOD COUNT 4.07 X10'6 (4.70-6.10); RED CELL DISTRIBUTION WIDTH 14.8 % (11.5-14.5); WHITE BLOOD COUNT 3.8 X10'3 (4.5-11.0)
[2024-08-09 10:03] LABS: ALANINE AMINOTRANSFERASE 15 U/L (12-78); ALBUMIN 2.3 G/DL (3.4-5.0); ALKALINE PHOSPHATASE 71 IU/L (46-116); ANION GAP 11 (8-16); ASPARTATE AMINO TRANSFERASE 18 U/L (10-37); BILIRUBIN,TOTAL 0.3 MG/DL (0.1-1.0); BLOOD UREA NITROGEN 11 MG/DL (7-18); BUN/CREATININE RATIO 10.2 (10.0-20.0); CALCIUM 7.8 MG/DL (8.5-10.1); CHLORIDE 112 MMOL/L (99-107); CREATININE 1.08 MG/DL (0.60-1.10); GLUCOSE 80 MG/DL (70-104); MAGNESIUM 1.7 MG/DL (1.5-2.4); POTASSIUM 3.9 MMOL/L (3.5-5.1); SODIUM 146 MMOL/L (135-145); TOTAL CARBON DIOXIDE 23.3 MMOL/L (24-32); TOTAL PROTEIN 4.6 G/DL (6.4-8.2); eCRCL 69 ML/MIN; eGFR 67 ML/MIN
[2024-08-09 11:06] VITALS: BP 117/76; PULSE 81; RESP 13; TEMP 97.4; O2SAT 97
[2024-08-09] MEDS ORDERED: LOPE2CAP PO (11:08)
[2024-08-09] MEDS ORDERED: PSYL0.4C2 PO (11:08)
--- NOTE | 2024-08-09 19:28 | DISCHARGE SUMMARY-Residence ---
Discharge Summary Providers to CC Resident Creating Document: LIZETT MONTESINOSILA, RES ~ Discharge Summary Admission Diagnosis: john paul Hospital Course DATE OF ADMISSION: 08/05/2024 DATE OF DISCHARGE: 08/09/2024 Discharge Diagnosis\Comment: Acute Diarrhea Gastroenteritis C diff-ruled out Bacterial gastroenteritis-ruled out Pre-renal JOHN PAUL likely secondary to dehydration-improved Obstructive uropathy ruled out Atrial fibrillation with RVR-controlled Chads Vasc score: 2 Hypertension Posttraumatic stress disorder Dyslipidemia COPD not in acute exacerbation Operations\Procedures: None Consultants: None Complications: None Condition on DC: Stable New Medications: Loperamide Hcl (Loperamide) 2 Mg Capsule 2 CAP PO Q6H for loose stool for 10 Days, #80 CAP 0 Refills Psyllium Husk (Metamucil) 0.4 Gram Capsule 1 CAP PO Q12H for 30 Days, #60 CAP 0 Refills Continued Medications: Atorvastatin Calcium (Atorvastatin Calcium) 40 Mg Tablet 1 TAB PO DAILY, TAB Cetirizine HCl (Cetirizine HCl) 10 Mg Tablet 1 TAB PO DAILY, TAB Cholecalciferol (Vitamin D3) (Vitamin D3) 25 Mcg Capsule 1 CAP PO DAILY, CAP 0 Refills Cyclobenzaprine HCl (Cyclobenzaprine HCl) 10 Mg Tablet 1 TAB PO Q8H for muscle spasms, TAB Dabigatran Etexilate Mesylate (Pradaxa) 150 Mg Capsule 1 CAP PO BID, CAP Diclofenac Sodium (Voltaren Arthritis Pain) Unknown Strength Gel..gram. Unknown Dose Eplerenone (Eplerenone) 25 Mg Tablet 1 TAB PO DAILY, TAB Finasteride (Finasteride) 5 Mg Tablet 1 TAB PO DAILY, TAB Fluoxetine Hcl* (Prozac*) 20 Mg Capsule 3 CAP PO DAILY, CAP Fluticasone Propionate (Fluticasone Propionate) 16 Gm [place].susp 2 SPRAYS BOTHNARES DAILY, INHALER 0 Refills Hydroxyzine HCl (Hydroxyzine HCl) 10 Mg/5 Ml Syrup 5 ML PO Q8H for anxiety, ML 0 Refills Metoprolol Succinate (Metoprolol Succinate) 100 Mg Tab.sr.24h 1 TAB PO DAILY, TAB Mirtazapine (Mirtazapine) 15 Mg Tablet 1.5 TAB PO HS for nightmares for 30 Days, #30 TAB 0 Refills Multivitamin (Multi Vitamin Daily) 1 Each Tablet 1 TAB PO DAILY, TAB 0 Refills Omeprazole (Omeprazole) 20 Mg Capsule. 1 CAP PO BID, CAP 0 Refills Prazosin HCl (Prazosin HCl) 5 Mg Capsule 1 CAP PO HS, CAP 1 Refill Sertraline HCl (Sertraline HCl) 100 Mg Tablet 2 TAB PO DAILY, TAB Tramadol HCl (Tramadol HCl) 50 Mg Tablet 1 TABLET PO TID, TABLET Discharge Summary: HPI: Primary care - Dr. Philippe at [facility] - Dr. 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 The patient states that his diarrhea started approximately 36 hours ago. Among the associated factors he reports episodes starting after eating [place] food (beef and beans), he endorses several episodes losing count. Last bowel movement was at 8 A.M. this morning. He describes the stools as dark b rown, foul-smelling, denies the presence of blood or mucus. The episodes persisted after taking kaopectate. He has not taken any antibiotics or PPIs recently. He states that this is not the 1st time that he has experienced a diarrhea, after his gastric bypass which was around 12-13 years ago he had experienced some episodes that solved by himself, this time he endorses that his diarrhea has been worse. Patient does not report any associated abdominal pain, fever, chills, lightheadedness, palpitations or urinary symptoms. Hospital course: 73-year-old male patient came to the hospital with chief complaint of acute diarrhea. The patient was evidenced with the acute kidney injury secondary to dehydration. The patient was started on IV fluids, due to suspicion of infectious diarrhea C diff, stool culture, blood in his stool was ordered, all the tests were negative. The patient was evaluated by Physical therapy who states that the patient is home independent. The patient reported improvement of episodes of diarrhea. The patient remained hemodynamically stable, kidney function improved. The patient will be discharged home. Discharge course: Patient remained hemodynamically stable. The patient will be discharged with the following instructions: Come back to the emergency department or call 911 if severe diarrhea, chest pain, palpitations, shortness of breath is evidenced. Take fiber daily. Take Loperamide 4 mg for diarrhea as needed. Continue your homemedications. Follow up with your primary care physician at the [facility] for medication review because of secondary side effects which potentially can be triggering this diarrhea episodes. Read your medication side effects. Follow up with gastroenterolgy as an outpatient within 1 months for possible need of colonoscopy. Physical exam: General: Well alert, somnolent, well oriented, not agitated, well cooperated during the physical. HEENT: Conjunctive are pink, sclerae clear, no icterus, pupil is equal in both sides, reactive to light, no ear discharge, no pharyngeal erythema or an edema. Neck: Supple, no JVD, no lymphadenopathy and thyromegaly. Chest: Equal air entry on both lungs, mild crackles are noted on left lower and middle lobes. Cardiovascular: S1-S2 irregular rhythm and rate, no gallops, no rubs, no murmurs Abdomen: soft, no visible peristalsis, increased bowel sounds present on auscultation, no tenderness, no guarding, no rigidity. Multiple surgical scars from excess skin removal surgery were present over abdomen and medial thighs. Extremities: No obvious deformities, no pitting edema bilaterally, capillary refill intact, peripheral pulsations are intact on both sides, presence of dermatitis stasis changes in bilateral lower extremities, B/L linear total knee replacement scars are seen, linear orthopedic scar seen behind the medial malleolus. Central Nervous System: No focal neurological deficits, no motor or sensory weakness in all 4 extremities, could move all 4 extremities, 2+ deep tendon reflexes, negative Babinski. Musculoskeletal: No joint swelling, deformities, inflammations, no costovertebral angle tenderness, and no scoliosis, Skin: Warm and dry. Presence of dermatitis stasis changes in bilateral lower extremities. Vital Signs Date Time Temp Pulse Resp B/P (MAP) Pulse Ox O2 Delivery O2 Flow Rate FiO2 08/09/24 11:06 97.4 81 13 117/76 (90) 97 Room Air 08/09/24 08:25 0.0 21 Laboratory Tests Test 08/08/24 07:58 08/09/24 08:13 White Blood Count 4.4 X10'3 3.8 X10'3 Red Blood Count 4.45 X10'6 4.07 X10'6 Hemoglobin 13.1 g/dl 11.9 g/dl Hematocrit 39.5 % 35.9 % Mean Corpuscular Volume 88.7 FL 88.3 FL Mean Corpuscular Hemoglobin 29.4 PG 29.3 PG Mean Corpuscular Hemoglobin Concent 33.1 g/dL 33.2 g/dL Red Cell Distribution Width 14.9 % 14.8 % Platelet Count 140 X10'3 131 X10'3 Mean Platelet Volume 9.1 FL 8.8 FL Neutrophils (%) (Auto) 66.2 % 58.5 % Lymphocytes (%) (Auto) 13.4 % 19.0 % Monocytes (%) (Auto) 18.1 % 18.7 % Eosinophils (%) (Auto) 2.2 % 3.6 % Basophils (%) (Auto) 0.1 % 0.2 % Neutrophils # (Auto) 2.9 X10'3 2.2 X10'3 Lymphocytes # (Auto) 0.6 X10'3 0.7 X10'3 Monocytes # (Auto) 0.8 X10'3 0.7 X10'3 Eosinophils # (Auto) 0.1 X10'3 0.1 X10'3 Basophils # (Auto) 0.0 X10'3 0.0 X10'3 CBC Comment Differential Total Cells Counted 100 Neutrophils % (Manual) 69.0 % Lymphocytes % (Manual) 13.0 % Monocytes % (Manual) 16.0 % Eosinophils % (Manual) 2.0 % Platelet Estimate Normal Red Blood Cell Morphology Normal Basophilic Stippling Sodium Level 146 MMOL/L 146 MMOL/L Potassium Level 4.1 MMOL/L 3.9 MMOL/L Chloride Level 110 MMOL/L 112 MMOL/L Carbon Dioxide Level 26.9 MMOL/L 23.3 MMOL/L Anion Gap 9 11 Blood Urea Nitrogen 13 MG/DL 11 MG/DL Creatinine 1.19 MG/DL 1.08 MG/DL Estimated GFR/1.73 m2 60 ML/MIN 67 ML/MIN BUN/Creatinine Ratio 10.9 10.2 Glucose Level 90 MG/DL 80 MG/DL Calcium Level 8.0 MG/DL 7.8 MG/DL Magnesium Level 1.7 MG/DL 1.7 MG/DL Total Bilirubin 0.4 MG/DL 0.3 MG/DL Aspartate Amino Transf (AST/SGOT) 22 U/L 18 U/L Alanine Aminotransferase (ALT/SGPT) 15 U/L 15 U/L Alkaline Phosphatase 93 IU/L 71 IU/L Total Protein 5.4 G/DL 4.6 G/DL Albumin 2.7 G/DL 2.3 G/DL Globulin 2.7 G/DL 2.3 G/DL Albumin/Globulin Ratio 1.0 1.0 Chemistry Comments *Problems/Diagnosis: (1) Gastroenteritis Status: Acute (2) Atrial fibrillation with RVR Status: Acute (3) JOHN PAUL (acute kidney injury) Status: Resolved Total Time Spent on D/C: > 30 Minutes Date of Service: Aug 09, 2024 Billing Provider: NALLELY JACOBS MD Common Visit Codes: 30365-LYH/[id number] DISCH DAY >30min ILA OLSON, RES Aug 09, 2024 19:28 NALLELY JACOBS MD Aug 10, 2024 18:52
== END 2024-08-09 16:22 | disposition home health service (06) | DRG 392 ==
LOC: ER 09:00 → ED HOLD 11:51 → PCU 3S 13:21
PROVIDERS: ADMIT Internal Medicine; ATTEND Internal Medicine
DX: K52.9 Noninfective gastroenteritis and colitis, unspecified (principal); N17.9 Acute kidney failure, unspecified; E86.0 Dehydration; I48.91 Unspecified atrial fibrillation; J44.9 Chronic obstructive pulmonary disease, unspecified; Z20.822 Contact with and (suspected) exposure to COVID-19; F43.10 Post-traumatic stress disorder, unspecified; Z96.653 Presence of artificial knee joint, bilateral; Z96.698 Presence of other orthopedic joint implants; E78.5 Hyperlipidemia, unspecified; I10 Essential (primary) hypertension; Z98.84 Bariatric surgery status; Z83.3 Family history of diabetes mellitus
CPT/HCPCS: 36415; 71045; 76770; 80053; 80061; 81001; 82150; 82272; 82570; 83036; 83690; 83735; 83880; 83930; 83935; 84145; 84156; 84300; 84443; 84540; 85007; 85025; 85651; 86140; 87045; 87046; 87081; 87207; 87324; 87449; 87811; 89055; 93005; 93306; 94640; 94760; 96361; 96374; 97116; 97161; 97530; 99291; G0378; J0744; J2270; J3490; J7030; J7040; J7120

== ENCOUNTER 2024-10-31 21:15 | Emergency (ER) | payer OTHER, MEDICARE ==
[~2024-10-31] VITALS: Ht 182.9 cm; Wt 99.8 kg
[~2024-10-31 21:15] MED LIST changes: -BENZ-111 PO; +FLUO20CA41 PO; -FOLI0.4T14 PO; -LIDO5JEL9 TOP; +LOPE2CAP PO; +MIRT-92 PO; +PSYL0.4C2 PO; -THIA50TA10 PO
[2024-10-31] MEDS: normal saline 1000ML IV soln IVB ONE (21:29)
[2024-10-31 21:39] LABS: MEAN PLATELET VOLUME 8.3 FL (7.4-10.4); RED CELL DISTRIBUTION WIDTH 16.0 % (11.5-14.5)
--- NOTE | 2024-10-31 21:47 | RADIOLOGY REPORT ---
EXAM: DI CHEST,SINGLE VIEW TECHNIQUE: Single frontal chest radiograph CLINICAL HISTORY: aloc COMPARISON: DI CHEST,SINGLE VIEW on DOS: 08/05/24 Findings/Impression: Frontal chest radiograph demonstrates no acute osseous or superficial soft tissue abnormalities. The trachea is midline. The cardiac silhouette and mediastinum are within normal limits. No pneumothorax, pleural effusions, or consolidations.
[2024-10-31 21:50] LABS: CREATININE 1.41 MG/DL (0.60-1.10); ETHANOL 184 MG/DL (<10); TOTAL CARBON DIOXIDE 25.3 MMOL/L (24-32); eCRCL 53 ML/MIN; eGFR 50 ML/MIN
--- NOTE | 2024-10-31 21:58 | RADIOLOGY REPORT ---
CLINICAL HISTORY: aloc TECHNIQUE: Helical scanning was performed of the head from the skull base to the vertex. Multiplanar reconstructions were performed. This exam was performed according to our departmental dose optimizat ion program. Up-to-date CT equipment and radiation dose reduction techniques are utilized as appropri ate. CTDI 58.7 DLP 02/27/62 .6 COMPARISON: None FINDINGS: There is no evidence for acute intracranial hemorrhage, acute ischemic changes, mass, mass effect, or extra-axial fluid collection. There is no hydrocephalus or midline shift. There is no effacement of the cerebral sulci and basal subarachnoid cisterns. The albarado-white matter differentiation is well sahara ntained. The imaged paranasal sinuses demonstrate mild bilateral maxillary sinus mucosal thickening. There has been bilateral cataract abstraction. IMPRESSION: NO ACUTE INTRACRANIAL ABNORMALITY SEEN.
[2024-10-31 22:12] LABS: LEUKOCYTE ESTERASE ,URINE TRACE (Neg); NITRITES, URINE NEGATIVE (Neg); OCCULT BLOOD,URINE TRACE-INTACT (Neg)
[2024-10-31 22:15] LABS: UA COLLECTION TYPE NON-SPECIFIED
[2024-10-31 22:17] LABS: SQUAMOUS EPITHELIAL CELL,UR FEW /LPF (FEW)
[2024-10-31 22:23] LABS: URINE AMPHETAMINE SCREEN NEGATIVE (Neg); URINE BARBITUATE SCREEN NEGATIVE (Neg); URINE BENZODIAZEPINES SCREEN NEGATIVE (Neg); URINE CANNABINOID SCREEN NEGATIVE (Neg); URINE COCAINE SCREEN NEGATIVE (Neg); URINE METHADONE SCREEN NEGATIVE (Neg); URINE OPIATE SCREEN NEGATIVE (Neg); URINE PHENCYCLIDINE SCREEN NEGATIVE (Neg)
--- NOTE | 2024-11-01 00:08 | Physician Documentation ---
History of Present Illness ~ Chief Complaint: Trauma Level 2 Stated Complaint: FALL Time Seen by MD: 21:19 Primary Medical Doctor: N/A Source: patient, EMS, EMS notes reviewed Mode of Arrival: EMS Exam Limitations: clinical condition HPI Chief Complaint: Fall, alcohol intoxication Caveat: Patient does not recall falling, intoxicated Independent Historians: Paramedics History of Present Illness: Patient is a 73-year-old man frequently visited by paramedics. Patient brought in by paramedics from home after having fallen and hitting his right side of his head. Patient has been drinking. Patient does not recall falling. He does not recall the event. The fall was unwitnessed. Patient denies any neck pain. Patient denies any pain. Review of systems: All systems were reviewed and are negative except for what is indicated in the history of present illness. Past Medical History: Heavy daily alcohol use, alcohol use disorder Past Surgical History: Social History: Daily alcohol use Medications: Reviewed as documented Nursing Notes Allergies: Reviewed as documented in Nursing Notes Tetanus within 5 Years?: No Medication Reconciliation Allergies: Coded Allergies: Sulfa (Sulfonamide Antibiotics) (Verified Allergy, Unknown, RASH, 08/06/24) baclofen (Verified Allergy, Unknown, RASH, 08/06/24) doxycycline (Verified Allergy, Unknown, RASH, 08/06/24) hydrocodone (Verified Allergy, Unknown, RASH, 08/06/24) Scheduled Atorvastatin Calcium (Atorvastatin Calcium), 1 TAB PO DAILY, (Reported) Cetirizine HCl (Cetirizine HCl), 1 TAB PO DAILY, (Reported) Cholecalciferol (Vitamin D3) (Vitamin D3), 1 CAP PO DAILY, (Reported) Cyclobenzaprine HCl (Cyclobenzaprine HCl), 1 TAB PO Q8H, (Reported) Dabigatran Etexilate Mesylate (Pradaxa), 1 CAP PO BID, (Reported) Eplerenone (Eplerenone), 1 TAB PO DAILY, (Reported) Finasteride (Finasteride), 1 TAB PO DAILY, (Reported) Fluoxetine Hcl* (Prozac*), 3 CAP PO DAILY, (Reported) Fluticasone Propionate (Fluticasone Propionate), 2 SPRAYS BOTHNARES DAILY, (Reported) Hydroxyzine HCl (Hydroxyzine HCl), 5 ML PO Q8H, (Reported) Loperamide Hcl (Loperamide), 2 CAP PO Q6H Metoprolol Succinate (Metoprolol Succinate), 1 TAB PO DAILY, (Reported) Mirtazapine (Mirtazapine), 1.5 TAB PO HS, (Reported) Multivitamin (Multi Vitamin Daily), 1 TAB PO DAILY, (Reported) Omeprazole (Omeprazole), 1 CAP PO BID, (Reported) Prazosin HCl (Prazosin HCl), 1 CAP PO HS, (Reported) Psyllium Husk (Metamucil), 1 CAP PO Q12H Sertraline HCl (Sertraline HCl), 2 TAB PO DAILY, (Reported) Tramadol HCl (Tramadol HCl), 1 TABLET PO TID, (Reported) Miscellaneous Medications Diclofenac Sodium (Voltaren Arthritis Pain), Unknown Dose, (Reported) Past Medical History Patient History: Atrial fibrillation (Mother) Diabetes mellitus in mother Esophageal cancer (Father - chewing tobacco) Alcohol Use: None Drug Use: none Lives with: Alone Lives In: Home Occupation: retired Review of Systems All Other Systems at this time: Reviewed and Negative Unable to obtain complete ROS: altered mental status (Alcohol intoxication) Physical Exam Vital Signs: RN Vital Signs have been reviewed: Yes, Temperature: 98.0, Source: Oral, Heart Rate: 79, Respiratory Rate: 16, BP: 107/71, Pulse Oximetry: 97, Weight: 102.200 Oxygen Flow Rate: 0 Pulse Oximetry Reflects: adequate oxygenation Physical Exam General Appearance: MILD DISTRESS, ALCOHOL ON BREATH, DISHEVELED HEENT: Normal OP, moist oral mucosa, PERRL, EOMI, ABRASION TO THE RIGHT FOREHEAD Neck: supple, normal ROM, trachea midline, NO MIDLINE TENDERNESS Pulmonary: No respiratory distress, CTA, BS equal Cardiac: RRR, no murmur, rub or gallop, GI: nondistended, soft, nontender, normal bowel sounds, no guarding, no rebound Extremities: normal ROM, no swelling, non-tender Skin: intact, dry, warm, no rashes Neuro: AAOx2, SLURRED SPEECH, no focal motor weakness Psych: normal affect, good eye contact, no apparent hallucination, normal speech Progress Results/Orders Results/Orders Orders - ÓSCAR YOO MD Electrocardiogram (10/31/24 21:19) Chest,Single View (10/31/24 21:19) Ct Head (10/31/24 21:19) Monitor (10/31/24 21:19) Saline Lock (10/31/24 21:19) Cult Urine + [facility] Ct (10/31/24 22:18) Ct Cervical Spine (10/31/24 23:55) Completed Orders - ÓSCAR YOO MD Cbc/Diff (10/31/24 21:19) Chest,Single View (10/31/24 21:19) Ct Head (10/31/24 21:19) Ethanol (10/31/24 21:19) Drug Screen, Urine (10/31/24 21:19) Normal Saline 1000ml (0.9% Sodium Chlori (10/31/24 21:20) * Npo Until Passed Bedside Swa (10/31/24 21:19) Nursing Swallow Screen (10/31/24 21:19) Hs Troponin I W Calculations (10/31/24 21:19) Hs Troponin I W Calculations (10/31/24 23:19) Hs Troponin I W Calculations (11/01/24 00:19) CMP (10/31/24 21:19) Ua W/Microscopic, Cult If Ind (10/31/24 21:58) Ct Cervical Spine (10/31/24 23:55) Medications Received in ER Medications (Trade) Dose Ordered Sig/Deepak Route PRN Reason Start Time Stop Time Status Last Admin Dose Admin (0.9% sodium chloride (NS) 1000ml IV soln) 500 ml ONCE ONCE IVB 10/31/24 21:20 10/31/24 21:21 DC 10/31/24 21:29 500 ML Vital Signs 10/31/24 10/31/24 10/31/24 10/31/24 21:18 21:40 22:00 22:04 Temp 98.0 98.0 Pulse 81 82 95 Resp 20 20 20 16 B/P (MAP) 125/83 122/72 (89) 106/64 (78) 106/64 (78) Pulse Ox 96 97 97 97 O2 Flow Rate 0 0 10/31/24 10/31/24 10/31/24 11/01/24 22:04 22:30 22:58 00:30 Pulse 75 79 64 Resp 18 16 16 B/P (MAP) 102/65 (77) 107/71 (83) 120/75 (90) Pulse Ox 94 97 99 O2 Flow Rate 0 0 11/01/24 02:36 Temp 97.7 Pulse 88 Resp 18 B/P (MAP) Pulse Ox 98 Laboratory Tests Test 10/31/24 21:30 10/31/24 21:58 10/31/24 23:34 11/01/24 00:39 White Blood Count 5.6 Red Blood Count 4.63 L Hemoglobin 13.6 L Hematocrit 41.6 L Mean Corpuscular Volume 90.0 Mean Corpuscular Hemoglobin 29.4 Mean Corpuscular Hemoglobin Concent 32.7 L Red Cell Distribution Width 16.0 H Platelet Count 201 Mean Platelet Volume 8.3 Neutrophils (%) (Auto) 54.0 Lymphocytes (%) (Auto) 26.0 Monocytes (%) (Auto) 15.6 H Eosinophils (%) (Auto) 3.9 Basophils (%) (Auto) 0.5 Neutrophils # (Auto) 3.0 Lymphocytes # (Auto) 1.5 Monocytes # (Auto) 0.9 Eosinophils # (Auto) 0.2 Basophils # (Auto) 0.0 CBC Comment Sodium Level 141 Potassium Level 4.5 Chloride Level 109 H Carbon Dioxide Level 25.3 Anion Gap 7 L Blood Urea Nitrogen 9 Creatinine 1.41 H Estimated GFR/1.73 m2 50 BUN/Creatinine Ratio 6.4 L Glucose Level 88 Calcium Level 8.2 L Total Bilirubin 0.5 Aspartate Amino Transf (AST/SGOT) 22 Alanine Aminotransferase (ALT/SGPT) 15 Alkaline Phosphatase 93 Troponin I High Sensitivity 13 13 13 Total Protein 6.7 Albumin 2.9 L Globulin 3.8 Albumin/Globulin Ratio 0.8 L Chemistry Comments Ethyl Alcohol Level 184 H Urine Specimen Description Non-specified Urine Color Yellow Urine Clarity Clear Urine pH 6.0 Urine Specific [place] <=1.005 Urine Protein Negative Urine Glucose (UA) Negative Urine Ketones Negative Urine Occult Blood Trace-intact Urine Nitrite Negative Urine Bilirubin Negative Urine Urobilinogen 0.2 Urine Leukocyte Esterase Trace H Urine RBC 0-2 Urine WBC 0-4 Urine Squamous Epithelial Cells Few Urine Bacteria None seen Urine Culture Indicated Indicated Volume Urine Centrifuged 10 ml Urine Comment Urine Opiates Screen Negative Urine Methadone Screen Negative Urine Fentanyl Screen Negative Urine Barbiturates Screen Negative Urine Phencyclidine Screen Negative Urine Amphetamines Screen Negative Urine Benzodiazepines Screen Negative Urine Cocaine Screen Negative Urine Cannabinoids Screen Negative Drug Screen Comment Troponin I High Sens Percent Delta 0 0 Troponin I Hi Sens Absolute Change 0 0 Microbiology Date/Time Source Procedure Growth Status 10/31/24 22:18 Urine Nonspecified Urine Culture - Preliminary Culture received. Resulted Medical Decision Making Findings Differential diagnosis includes but is not limited to: Alcohol intoxication, substance abuse, electrolyte abnormalities, minor closed head injury, traumatic brain injury, cervical injury EKG independent interpretation: Performed at 9:32 p.m.. AFib, heart rate 75, normal axis, normal ST segments Chest x-ray, single view, indication: Fall, ALOC Independent interpretation: Lungs are clear, normal mediastinum, cardiomegaly, no acute cardiopulmonary process Head CT without IV contrast, indication: Head trauma Impression: NO ACUTE INTRACRANIAL ABNORMALITY SEEN. CT cervical spine without IV contrast, indication: Head trauma Impression: 1. No definite CT evidence of acute fracture or dislocation of the bony cervical spine. 2. Mild degenerative change of the cervical spine. Laboratory data independent interpretation: CBC: Mild anemia with a hemoglobin of 13.6 CMP: Unremarkable, creatinine elevated at 1.41 Troponin: 13, 13 Toxicology: Blood alcohol level 184, urine drug screen negative Urinalysis: Unremarkable Emergency department course/medical decision-making: Patient presents with alcohol intoxication and what is likely a minor closed head injury. CT of the brain is performed. No evidence of traumatic brain injury. CT of the C-spine was performed because of his alcohol intoxication in the inability to clinically clear his C-spine. CT of the C-spine is negative for fractures. The patient left against medical advice without my knowledge when I was in another patient's room suturing. The nurse had him sign AMA paperwork. Patient did not receive any discharge instructions. Departure Time of Disposition: 03:21 Disposition: 07 LEFT AGAINST MEDICAL ADVICE Impression: Primary Impression: Alcoholic intoxication Qualified Codes: F10.929 - Alcohol use, unspecified with intoxication, unspecified Additional Impressions: Minor closed head injury Facial abrasion Qualified Codes: S00.81XA - Abrasion of other part of head, initial encounter Condition: Improved Referrals: NO PRIMARY CARE PROVIDER (PCP) Signature Scribe Signature: No scribe Attestation: No scribe ÓSCAR YOO MD Nov 01, 2024 00:08
[2024-11-01 00:30] VITALS: BP 120/75
--- NOTE | 2024-11-01 01:39 | RADIOLOGY REPORT ---
EXAM: CT CT CERVICAL SPINE HISTORY: trauma NECK PAIN S/P FALL COMPARISON: CT CT HEAD on DOS: 10/31/24 CTDIvol 24.07 mGy, DLP 537.04 mGy*cm. TECHNIQUE: Multiple axial CT images of the spine were obtained using bone algorithm. Axial and coron al reformatting was done. Bone and soft tissue windows were reviewed. FINDINGS: No CT evidence of definite acute fracture, spinal dislocation, or significant appearing acute subluxa tion is seen. The visualized paraspinal soft tissues are grossly unremarkable. Degenerative changes of the cervical spine include mild multilevel disc height loss with adjacent end plate sclerosis and anterior osteophytosis and multilevel bilateral facet hypertrophy. Mild biapical pleural parenchymal scarring. IMPRESSION: 1. No definite CT evidence of acute fracture or dislocation of the bony cervical spine. 2. Mild degenerative change of the cervical spine.
[2024-11-01 02:36] VITALS: PULSE 88; RESP 18; TEMP 97.7; O2SAT 98
--- NOTE | 2024-11-01 06:55 | ELECTROCARDIOGRAPH REPORT ---
[facility] Test Date: 2024-10-31 Test Time: 21:32:54 Pat Name: NUPUR HERNANDEZ Department: EMERGENCY ROOM Room: Gender: M Incident Response Consultant: ER : 1950 Requested By: ÓSCAR YOO Order Number: [id number] Reading MD: Measurements Intervals Amo Rate: 75 P: 0 ND: 0 QRS: 38 QRSD: 90 T: 33 QT: 407 QTc: 455 Interpretive Statements Atrial fibrillation Low voltage, precordial leads Please click the below link to view image of tracing.
== END 2024-11-01 02:48 | disposition left against medical advice (07) ==
LOC: ER 21:16
DX: S00.81XA Abrasion of other part of head, initial encounter (principal); S09.8XXA Other specified injuries of head, initial encounter; F10.129 Alcohol abuse with intoxication, unspecified; I48.91 Unspecified atrial fibrillation; D64.9 Anemia, unspecified; Z88.2 Allergy status to sulfonamides; Z88.1 Allergy status to other antibiotic agents; Z88.5 Allergy status to narcotic agent; Z79.899 Other long term (current) drug therapy; W18.39XA Other fall on same level, initial encounter; Y93.89 Activity, other specified; Y92.89 Other specified places as the place of occurrence of the external cause; Y99.8 Other external cause status; Y90.6 Blood alcohol level of 120-199 mg/100 ml
CPT/HCPCS: 36415; 70450; 71045; 72125; 80053; 80305; 80320; 81001; 84484; 85025; 87088; 93005; 99285; J7030